=== PATIENT | female | born 1995 | race Caucasian/White ===

== ENCOUNTER 2025-03-01 07:31 | Emergency (ER) | payer BC ==
[~2025-03-01] VITALS: Ht 157.5 cm; Wt 66.2 kg
[2025-03-01] MEDS ORDERED: FAMOTIDINE/PF INJ 20 MG/2 ML VIAL IV ONE (07:58)
[2025-03-01] MEDS ORDERED: PANTOPRAZOLE 40 MG VIAL ONE (07:58)
[2025-03-01] MEDS ORDERED: METOCLOPRAMIDE HCL 10 MG/10 ML UDC ONE (07:58)
[2025-03-01] MEDS ORDERED: SUCRALFATE 1 G/10 ML UDC ONE (07:58)
[2025-03-01 08:06] LABS: BASOPHILS # (AUTO) 0.1 K/uL (0.0-0.2); BASOPHILS % (AUTO) 0.4 % (0.0-2.0); EOSINOPHILS % (AUTO) 0.2 % (0.0-6.0); HEMATOCRIT 44 % (33-45); HEMOGLOBIN 14.2 g/dL (11.5-14.8); LYMPHOCYTES # (AUTO) 0.7 K/uL (0.8-4.8); LYMPHOCYTES % (AUTO) 4.9 % (20.0-44.0); MEAN CORPUSCULAR HEMOGLOBIN 29 PG (26.0-33.0); MEAN CORPUSCULAR HGB CONC 33 g/dl (31.0-36.0); MEAN CORPUSCULAR VOLUME 89 fL (82-100); MONOCYTES # (AUTO) 0.5 K/uL (0.1-1.30); MONOCYTES % (AUTO) 3.5 % (2.0-12.0); NEUTROPHILS # (AUTO) 13.2 K/uL (1.8-8.9); PLATELET COUNT (AUTO) 274 K/uL (150-450); RED BLOOD CELL COUNT(AUTO) 4.89 MIL/uL (4.0-5.2); RED CELL DISTRIBUTION WIDTH 14.6 % (11.5-15.0); WHITE BLOOD COUNT (AUTO) 14.5 K/uL (4.3-11.0)
[2025-03-01] MEDS ORDERED: METOCLOPRAMIDE HCL 10 MG/2 ML VIAL ONE (08:08)
[2025-03-01] MEDS: FAMOTIDINE/PF INJ 20 MG/2 ML VIAL IV ONE (08:15)
[2025-03-01] MEDS: METOCLOPRAMIDE HCL 10 MG/2 ML VIAL IV ONE (08:18)
[2025-03-01] MEDS: SUCRALFATE 1 G/10 ML UDC PO ONE (08:18)
[2025-03-01] MEDS: PANTOPRAZOLE 40 MG VIAL IV ONE (08:18)
[2025-03-01 08:21] LABS: CALCIUM, SERUM 9.9 mg/dL (8.5-10.1); CREATININE 0.8 mg/dL (0.6-1.3); POTASSIUM 3.7 mmol/L (3.5-5.1)
[2025-03-01 08:27] LABS: ALBUMIN 4.6 g/dL (3.4-5.0); BILIRUBIN,TOTAL 0.5 mg/dL (0.2-1.0); TOTAL PROTEIN, SERUM 8.1 g/dL (6.4-8.2)
[2025-03-01] MEDS ORDERED: HALOPERIDOL LACTATE INJ 5 MG/ML VIAL ONE (09:23)
[2025-03-01] MEDS: HALOPERIDOL LACTATE INJ 5 MG/ML VIAL IM ONE (09:28)
[2025-03-01] MEDS ORDERED: FAMO20TA80 PO (10:55)
[2025-03-01] MEDS ORDERED: ONDA4TAB5 PO (10:55)
[2025-03-01] MEDS ORDERED: PANT40TA49 PO (10:55)
[2025-03-01] MEDS ORDERED: SUCR1TAB31 PO (10:55)
[2025-03-01 11:14] VITALS: BP 119/84; TEMP 98.2; O2SAT 99
== END 2025-03-01 11:14 | disposition home or self-care (01) ==
LOC: ER 07:41
DX: R11.2 Nausea with vomiting, unspecified (principal)
CPT/HCPCS: 99284; 96374; 96375; 85025; 83690; 84703; 36415; 80053; 96372; J1630; J1308; J2765; J2470; J8597